=== PATIENT | female | born 1980 | race Caucasian/White ===

== ENCOUNTER 2022-09-11 16:34 | Day surgery (SDC) | payer BC, SELFPAY ==
[2022-09-11 16:44] VITALS: BP 131/85; PULSE 89; RESP 16; TEMP 36.4; O2SAT 99; BMI 26.3
--- NOTE | 2022-09-11 17:56 | CRLHL7_ITS ---
For Patients: As a result of the Century Cures Act, medical imaging exams and procedure reports are released immediately into your electronic medical record. You may view this report before your referring provider. If you have questions, please contact your health care provider. INDICATION: Abdominal pain. TECHNIQUE: CT abdomen and pelvis acquired with 100 cc Omnipaque 350 IV contrast. COMPARISON: None. FINDINGS: Lower chest: Scattered dependent atelectasis. Liver: Unremarkable. Normal in size and attenuation. No suspicious masses. Gallbladder and bile ducts: Unremarkable. No stones or inflammation. No biliary dilatation. Pancreas: Unremarkable. No mass or inflammation. Spleen: Unremarkable. Normal in size. No masses. Adrenal glands: Unremarkable. No nodules. Kidneys: Unremarkable. No suspicious masses, stones, or hydronephrosis. GI tract: Mild submucosal fatty infiltration of the colon which could be seen in remote/recurrent colitis. No bowel obstruction. Mildly enlarged/hyperemic appendix with subtle periappendiceal inflammatory stranding. Vasculature: Abdominal aorta is normal in caliber. Mesenteric arteries are patent. Lymph nodes: No lymphadenopathy. Peritoneum/Abdominal Wall: Unremarkable. No sign of mass or infiltration. No free air or significant free fluid. Pelvis: Unremarkable. Bones: Unremarkable for age. IMPRESSION: Mildly enlarged/hyperemic appendix with subtle periappendiceal inflammatory stranding. Finding suspicious for possible early acute appendicitis. Recommend correlation with physical examination for right lower quadrant pain and correlation with laboratory data. Submucosal fatty infiltration of the colon, likely related to remote/recurrent colitis. Please note that all CT scans at this facility use dose modulation, iterative reconstruction, and/or weight-based dosing when appropriate to reduce radiation dose to as low as reasonably achievable. Dictated by Guillaume Lockett MD @ 09/11/2022 7:01:25 PM (Electronically Signed)
--- NOTE | 2022-09-11 17:57 | ED.ABDPAIN ---
HPI - Abdominal Pain General Chief Complaint: Abdominal Pain Stated Complaint: Stomach pain lasting a month Time Seen by Provider: 09/11/22 16:44 History of Present Illness HPI narrative: This 42-year-old female comes in with abdominal pain she states that she had some pain with episodes of diarrhea about a month ago. She this resolved and she felt normal for a couple weeks. She reports that she typically has constipation and does not typically have diarrhea. She did not have any fever or dysuria. There was no vomiting. About a couple weeks ago she started to have recurrent diarrhea symptoms with some crampy abdominal pain. This abdominal pain became much more intense last night. She states that she was awake for more than 3 hours with pain and some episodes of diarrhea. Has not been constipated recently. She does not report any blood in the toilet. Currently she is minimal pain. Related Data Home Medications Medication Instructions Recorded Confirmed No Known Home Medications 09/11/22 09/11/22 Allergies Allergy/AdvReac Type Severity Reaction Status Date / Time No Known Drug Allergies Allergy Verified 09/11/22 16:48 Review of Systems Status of ROS Reports: 10 or more systems reviewed and unremarkable except as noted in History and below Narrative Constitutional: No fevers, no weight gain or loss. Eyes: No discharge. No vision changes. HENT: No congestion, no sore throat, no ear pain. Cardiovascular: No chest pain, no palpitations. Respiratory: No shortness of breath, no wheezes, no cough. Gastrointestinal: Abdominal pain with diarrhea episodes as described above. No vomiting. Genitourinary: No dysuria, no hematuria. Musculoskeletal: Normal range of motion. Skin: No rashes, no pruritis. Neurological: No dizziness, weakness, sensory change, speech change. Endo/Heme/Allergies: No bruising or bleeding. No polydipsia. Pysch: no suicidality, no anxiety, no insomnia. All other systems reviewed and are negative. PFSH PFS Social History Smoking Status: Never smoker Non-prescribed substance use: denies use Exam Narrative: Exam Narrative: Constitutional: Well-developed, well-nourished, no acute distress. HEENT: Normocephalic, atraumatic. Neck: Normal range of motion. Nontender. Supple. Heart: Regular. No murmurs. Normal rate. Intact distal pulses. Lungs: Clear to auscultation. No chest discomfort. No wheezes, rhonchi, or rales. Abdomen: Normal bowel sounds. Diffuse abdominal pain which is mild currently. No rebound tenderness. Genitalia: Deferred. Back: No midline tenderness. Normal range of motion. Extremities: Normal range of motion. No injury. Skin: Intact. No rash. Warm. No erythema or pallor. Neurologic: No altered sensation. No weakness. Alert and oriented. Psychiatric: No suicidality. No anxiety or depression. No insomnia. Nursing notes and vitals signs are reviewed. Const: Vital Signs, click to edit/add: Vital Signs - 24 hr 09/11/22 16:44 Temperature 97.5 F L Pulse Rate [Left P ulse Oximeter] 89 Respiratory Rate 16 Blood Pressure [Ri ght Upper Arm] 131/85 Pulse Oximetry 99 Oxygen Delivery Me thod Room Air Course Vital Signs Vital signs: Initial Vital Signs Temperature 97.5 F L 09/11/22 16:44 Temperature Source Temporal Artery Scan 09/11/22 16:44 Pulse Rate 89 09/11/22 16:44 Pulse Rhythm 09/11/22 16:44 Pulse Strength 3+ Normal 09/11/22 16:44 Respiratory Rate 16 09/11/22 16:44 Blood Pressure 131/85 09/11/22 16:44 Blood Pressure Mean 100 09/11/22 16:44 Blood Pressure Position Sitting 09/11/22 16:44 Pulse Oximetry 99 09/11/22 16:44 Oxygen Delivery Method 09/11/22 16:44 Vital Signs Temperature 97.5 F L 09/11/22 16:44 Pulse Rate 89 09/11/22 16:44 Respiratory Rate 16 09/11/22 16:44 Blood Pressure 131/85 09/11/22 16:44 Pulse Oximetry 99 09/11/22 16:44 Oxygen Delivery Method 09/11/22 16:44 Temperature 97.5 F L 09/11/22 16:44 Pulse Rate 89 09/11/22 16:44 Respiratory Rate 16 09/11/22 16:44 Blood Pressure 131/85 09/11/22 16:44 Pulse Oximetry 99 09/11/22 16:44 Oxygen Delivery Method 09/11/22 16:44 MDM - Abdominal Pain MDM Narrative Medical decision making narrative: This patient comes in with abdominal pain as described above. She does have rather distinct pain if pressing deep enough at McBurney's point. Is established and labs were drawn. Labs returned with reassuring findings. Her sed rate is pending at this time. CT imaging of the abdomen and pelvis does show some inflammatory changes and possibility of early acute appendicitis. I did speak with the surgeon on-call, Dr. Alvarez, who recommended admission hospital and re-evaluation in the morning. Clostridium difficile test is ordered results pending. Similarly COVID test is pending at this time. I spoke with the hospitalist financial economist, Dr. Damon, who will arrange for her admission. Lab Data Labs: Lab Results 09/11/22 09/11/22 Range/Units 18:06 18:06 WBC 6.00 (4.50-11.00) K/uL RBC 4.49 (4.00-5.20) m/uL Hgb 13.2 (12.0-16.0) gm/dL Hct 38.6 (33.0-51.0) % MCV 86 (80-100) fL MCH 29 (26-34) pg MCHC 34 (32-36) gm/dL RDW Coeff of Dylan 12.0 (11.5-15.5) % Plt Count 184 (140-440) K/uL Neut % (Auto) 52.6 (42.0-72.0) % Lymph % (Auto) 31.8 (20-44) % [facility] [place] [facility] % (Auto) 7.7 (0.0-11.0) % Eos % (Auto) 6.7 (0.0-7.0) % Baso % (Auto) 1.0 (0.0-3.0) % Neut # (Auto) 3.16 (1.7-7.0) K/uL Lymph # (Auto) 1.91 (0.90-2.90) K/uL [facility] [place] [facility] # (Auto) 0.50 (0.00-0.90) K/UL Eos # (Auto) 0.40 (0.00-0.50) K/uL Baso # (Auto) 0.06 (0.00-0.30) K/uL Abs Immat Gran (auto) 0.01 (0.00-0.30) K/uL Sodium 137 (135-149) mmol/L Potassium 4.2 (3.6-5.1) mmol/L Chloride 104 (96-114) mmol/L Carbon Dioxide 27 (20-32) mmol/L BUN 10 (5-24) mg/dL Creatinine 0.7 (0.5-1.5) mg/dL Estimated Creat Clear 99.73 Estimated GFR 109 ml/min Glucose 98 (60-115) mg/dL Calcium 9.4 (8.4-10.6) mg/dL Discharge Plan Discharge Clinical Impression: Abdominal pain Patient Disposition: Admitted As Inpatient Prescriptions: No Action No Known Home Medications Follow Up/Referrals: Provider,Not a Local [Primary Care Provider] -
[2022-09-11 18:13] LABS: Basophils Absolute Auto 0.06 K/uL (0.00-0.30); Eosinophils Percent Auto 6.7 % (0.0-7.0); Hematocrit 38.6 % (33.0-51.0); Hemoglobin* 13.2 gm/dL (12.0-16.0); Immature Granulocytes Abs Auto 0.01 K/uL (0.00-0.30); Lymphocytes Absolute Auto 1.91 K/uL (0.90-2.90); Lymphocytes Percent Auto 31.8 % (20-44); Mean Corpuscular HGB Conc 34 gm/dL (32-36); Mean Corpuscular Hemoglobin 29 pg (26-34); Mean Corpuscular Volume 86 fL (80-100); Monocytes Percent Auto 7.7 % (0.0-11.0); Neutrophils Absolute Auto 3.16 K/uL (1.7-7.0); Neutrophils Percent Auto 52.6 % (42.0-72.0); Platelet Count* 184 K/uL (140-440); Red Blood Count 4.49 m/uL (4.00-5.20)
[2022-09-11 18:25] LABS: Chloride* 104 mmol/L (96-114)
[2022-09-11 18:26] LABS: Potassium* 4.2 mmol/L (3.6-5.1); Sodium* 137 mmol/L (135-149)
[2022-09-11 18:28] LABS: Carbon Dioxide* 27 mmol/L (20-32); Creatinine* 0.7 mg/dL (0.5-1.5); Est. Creatinine Clearance* 99.73; Estimated Glomerular Filt Rate 109 ml/min
[2022-09-11 18:29] LABS: Blood Urea Nitrogen* 10 mg/dL (5-24); Calcium* 9.4 mg/dL (8.4-10.6); Glucose* 98 mg/dL (60-115)
[2022-09-11 18:43] LABS: Slide Review Reflex No
[2022-09-11 20:45] LABS: SARS PCR* Negative SARS-CoV-2 (Negative)
[2022-09-11 21:01] VITALS: BP 126/78
[2022-09-11 21:08] LABS: Erythrocyte SedimentationRate* 6 mm/hr (2-20)
--- NOTE | 2022-09-11 21:36 | PM.IMHP1 ---
Hospitalist- H&P: HPI History of Present Illness Date Seen: 09/11/22 Chief complaint: Stomach pain lasting a month Narrative: Cassy Morton is a 42 year old female presenting for evaluation of abdominal pain. The patient endorses crampy abdominal pain. Sometimes the pain is RLQ other times the pain is generalized. She has hx of intermittent diarrhea, denies melena, hematochezia. She denies chest pain, sob, endorses nausea/vomiting, denies fever. In the ED the patient had normal WBC. Notable workup included CT AP which showed Mildly enlarged/hyperemic appendix with subtle periappendiceal inflammatory stranding. Finding suspicious for possible early acute appendicitis. Recommend correlation with physical examination for right lower quadrant pain and correlation with laboratory data. Submucosal fatty infiltration of the colon, likely related to remote/recurrent colitis. Her case was discussed with rehabilitation services aide Surgery and the patient was admitted for further evaluation. Review of Systems Status of ROS: Reports: 10 or more systems reviewed and unremarkable except as noted in History and below PFSH PFSH Social History Smoking Status: Never smoker Non-prescribed substance use: denies use Meds Home Medications and Allergies Home Medications Medication Instructions Recorded Confirmed Type No Known Home Medications 09/11/22 09/11/22 History Allergies Allergy/AdvReac Type Severity Reaction Status Date / Time No Known Drug Allergies Allergy Verified 09/11/22 16:48 Exam Narrative: Exam Narrative: Gen: no acute distress HEENT: NCAT EOMI MMM Neck: Supple CV: RRR s1 s2 LCTAB Abd: RLQ tenderness no rebound MSK: Age appropriate muscle mass Skin: warm, dry no rash Const: Vital Signs, click to edit/add: Vital Signs - 24 hr 09/11/22 16:44 09/11/22 21:01 Temperature 97.5 F L Pulse Rate [Left P ulse Oximeter] 89 Respiratory Rate 16 Blood Pressure [Ri ght Upper Arm] 131/85 126/78 Pulse Oximetry 99 Oxygen Delivery Me thod Room Air Hospitalist - H&P: Result Labs Labs: Short CBC 09/11/22 Range/Units 18:06 WBC 6.00 (4.50-11.00) K/uL Hgb 13.2 (12.0-16.0) gm/dL Hct 38.6 (33.0-51.0) % Plt Count 184 (140-440) K/uL BMP 09/11/22 18:06 Sodium 137 Potassium 4.2 Chloride 104 Carbon Dioxide 27 BUN 10 Creatinine 0.7 Glucose 98 Calcium 9.4 Assessment and Plan Assessment and plan (1) Abdominal pain: Status: Acute Plan Assessment: Cassy Morton is a 42 year old female presenting for evaluation of abdominal pain. The patient endorses crampy abdominal pain. Sometimes the pain is RLQ other times the pain is generalized. She has hx of intermittent diarrhea, denies melena, hematochezia. In the ED the patient had normal WBC. Notable workup included CT AP which showed Mildly enlarged/hyperemic appendix with subtle periappendiceal inflammatory stranding. Finding suspicious for possible early acute appendicitis. Recommend correlation with physical examination for right lower quadrant pain and correlation with laboratory data. Submucosal fatty infiltration of the colon, likely related to remote/recurrent colitis. Her case was discussed with rehabilitation services aide Surgery and the patient was admitted for further evaluation. 1. Suspected appendicitis 2. Submucosal fatty infiltration of the colon, likely related to remote/recurrent colitis. Plan -admit to observation -npo -MIVF -antiemetics -pain control -zosyn -stool culture/enteric pathogen panel -Surgery consult in AM -consideration outpatient colonoscopy 6-8 weeks following discharge for evaluation of IBD Code-Full DVT ppx-SCD
[2022-09-11] MEDS: 0.9 % SODIUM CHLORIDE 1000 ml 1,000 ML 125 ML IV (21:56)
[2022-09-11 21:57] VITALS: RESP 16; TEMP 37; O2SAT 98
[2022-09-11] MEDS: HYDROmorphone 0.5 mg/0.5 ml inj IVP (21:58)
[2022-09-11 23:09] VITALS: BMI 26.3
[2022-09-11] MEDS: PIPERACILLIN/TAZOBACTAM 4.5 GM in 0.9 % SODIUM CHLORIDE Mini-bag 100 ML IVPB (23:20)
[2022-09-12] VITALS (19 sets, daily range): BP systolic 100–139; BP diastolic 53–95; PULSE 65–97; RESP 14–18; TEMP 36.2–37.4; O2SAT 95–100
[2022-09-12] MEDS: 0.9 % SODIUM CHLORIDE 1000 ml 1,000 ML 125 ML IV (04:46)
[2022-09-12] MEDS: PIPERACILLIN/TAZOBACTAM 4.5 GM in 0.9 % SODIUM CHLORIDE Mini-bag 100 ML IVPB (04:46)
[2022-09-12] MEDS: HYDROmorphone 0.5 mg/0.5 ml inj IVP (04:56)
[2022-09-12 07:18] LABS: Lactate* 1.5 mmol/L (0.5-1.9)
[2022-09-12 07:24] LABS: Basophils Absolute Auto 0.04 K/uL (0.00-0.30); Basophils Percent Auto 0.9 % (0.0-3.0); Eosinophils Absolute Auto 0.28 K/uL (0.00-0.50); Eosinophils Percent Auto 6.1 % (0.0-7.0); Hematocrit 38.8 % (33.0-51.0); Hemoglobin* 13.1 gm/dL (12.0-16.0); Immature Granulocytes Abs Auto 0.01 K/uL (0.00-0.30); Lymphocytes Absolute Auto 1.31 K/uL (0.90-2.90); Lymphocytes Percent Auto 28.7 % (20-44); Mean Corpuscular HGB Conc 34 gm/dL (32-36); Mean Corpuscular Hemoglobin 29 pg (26-34); Mean Corpuscular Volume 87 fL (80-100); Monocytes Percent Auto 7.9 % (0.0-11.0); Neutrophils Absolute Auto 2.57 K/uL (1.7-7.0); Neutrophils Percent Auto 56.2 % (42.0-72.0); Platelet Count* 158 K/uL (140-440); Red Blood Count 4.47 m/uL (4.00-5.20); White Blood Count* 4.57 K/uL (4.50-11.00)
[2022-09-12 07:32] LABS: Slide Review Reflex No
[2022-09-12 07:34] LABS: Chloride* 109 mmol/L (96-114); Potassium* 4.2 mmol/L (3.6-5.1); Sodium* 138 mmol/L (135-149)
[2022-09-12 07:37] LABS: Blood Urea Nitrogen* 9 mg/dL (5-24); Calcium* 8.7 mg/dL (8.4-10.6); Carbon Dioxide* 21 mmol/L (20-32); Creatinine* 0.7 mg/dL (0.5-1.5); Est. Creatinine Clearance* 99.73; Estimated Glomerular Filt Rate 109 ml/min; Glucose* 99 mg/dL (60-115)
[2022-09-12] MEDS: ONDANSETRON 2 MG/ML inj 4 MG IVP (07:52)
--- NOTE | 2022-09-12 08:44 | P.GSCN_ITS ---
History of Present Illness Consult details Date Seen: 09/12/22 Consult date: 09/12/22 Narrative: The patient is a 42-year-old female who presented to the emergency department last evening with abdominal pain. Her history is as follows: At the beginning of July she had 3 weeks of diarrhea this was unprovoked. She states that with that she had some crampy abdominal pain which is different from the pain she is having now. This went away on its own. She states that 1 week ago she developed abdominal pain. A week prior to that she again had diarrhea. She states that this discomfort which started again a week ago, was intermittent and crampy in her mid to upper abdomen. Two days prior to admission she had nausea as well as pain. One day prior to admission she had diarrhea and nausea. She has not had a bowel movement in 2 days. Yesterday the pain was worse and she went to see her chiropractor who push on her right abdomen. She had severe pain with this and she was told to go to be evaluated. She went to urgent care and they sent her to the emergency department. Since she has been admitted, she has been unable to have a bowel movement. She thought maybe she could have a bowel movement this morning but when she got up she had chills and pain as well as nausea. She states that her pain has not significantly changed since admission overnight. She has not had any blood in her stool. She has never had a colonoscopy. She states that she was told a long time ago that her appendix was thickened. Apparently appendectomy was discussed but decided against. That was not at this facility. She states that she has had GI issues in the past and was diagnosed with irritable bowel syndrome. For this she was told to take MiraLax. She states that she generally will have firm stools every 1-2 days and that diarrhea is unusual for her. Currently she states most of her pain is in her back on the right side. Review of Systems Status of ROS: Reports: 10 or more systems reviewed and unremarkable except as noted in History and below PFSH PFSH Surgical History (Updated 09/12/22 @ 09:17 by Eilzabeth Alvarez MD) S/P ureteral reimplantation Social History (Updated 09/12/22 @ 09:17 by Elizabeth Alvarez MD) Narrative: She does not smoke. She drinks occasional alcohol. She works as a senior systems administrator. She is . Highest level of school completed/degree received: high school graduate Smoking Status: Never smoker Second hand tobacco smoke exposure: No Non-prescribed substance use: denies use Meds Home Medications and Allergies Home Medications Medication Instructions Recorded Confirmed Type No Known Home Medications 09/11/22 09/11/22 History Allergies Allergy/AdvReac Type Severity Reaction Status Date / Time No Known Drug Allergies Allergy Verified 09/11/22 16:48 Exam Narrative: Exam Narrative: General appearance: Alert, cooperative, and in no distress Eyes: PERRLA, eye lids clear, and sclera white HENT Head: Normocephalic Ears: External ears normal Cardiovascular Heart: Regular rate Extremities: warm and well perfused Gastrointestinal Abdominal: Suprapubic scar noted. No other abdominal scars. Abdomen is soft. She is tender to deep palpation on the right lower abdomen. She does have pain on the right with palpation of the left lower quadrant. No rebound. Musculoskeletal: Extremities: Upper: Both upper extremities have normal joint range of motion and intact strength. Lower: Both lower extremities have normal joint range of motion and intact strength. Skin: Normal skin color, texture, and turgor. No rashes or lesions. Neurologic: No focal deficits Psychiatric: Alert, oriented, cooperative, normal affect. Const: Vital Signs, click to edit/add: Vital Signs - 24 hr 09/11/22 16:44 09/11/22 21:01 09/11/22 21:57 Temperature 97.5 F L 98.6 F Pulse Rate [Left P ulse Oximeter] 89 Pulse Rate [Right Radial] Respiratory Rate 16 16 Blood Pressure [Ri ght Arm] Blood Pressure [Ri ght Upper Arm] 131/85 126/78 Pulse Oximetry 99 98 Oxygen Delivery Me thod Room Air Room Air 09/12/22 03:10 09/12/22 07:00 09/12/22 07:00 Temperature 99.3 F 98.8 F Pulse Rate [Left P ulse Oximeter] Pulse Rate [Right Radial] 84 81 81 Respiratory Rate 16 16 16 Blood Pressure [Ri ght Arm] 127/86 110/68 Blood Pressure [Ri ght Upper Arm] Pulse Oximetry 98 98 Oxygen Delivery Me thod Room Air Room Air Results Labs Labs: Diabetes panel 09/11/22 09/12/22 Range/Units 18:06 06:49 Sodium 137 138 (135-149) mmol/L Potassium 4.2 4.2 (3.6-5.1) mmol/L Chloride 104 109 (96-114) mmol/L Carbon Dioxide 27 21 (20-32) mmol/L BUN 10 9 (5-24) mg/dL Creatinine 0.7 0.7 (0.5-1.5) mg/dL Glucose 98 99 (60-115) mg/dL Calcium 9.4 8.7 (8.4-10.6) mg/dL Calcium panel 09/11/22 09/12/22 Range/Units 18:06 06:49 Calcium 9.4 8.7 (8.4-10.6) mg/dL Pituitary panel 09/11/22 09/12/22 Range/Units 18:06 06:49 Sodium 137 138 (135-149) mmol/L Potassium 4.2 4.2 (3.6-5.1) mmol/L Chloride 104 109 (96-114) mmol/L Carbon Dioxide 27 21 (20-32) mmol/L BUN 10 9 (5-24) mg/dL Creatinine 0.7 0.7 (0.5-1.5) mg/dL Glucose 98 99 (60-115) mg/dL Calcium 9.4 8.7 (8.4-10.6) mg/dL Adrenal panel 09/11/22 09/12/22 Range/Units 18:06 06:49 Sodium 137 138 (135-149) mmol/L Potassium 4.2 4.2 (3.6-5.1) mmol/L Chloride 104 109 (96-114) mmol/L Carbon Dioxide 27 21 (20-32) mmol/L BUN 10 9 (5-24) mg/dL Creatinine 0.7 0.7 (0.5-1.5) mg/dL Glucose 98 99 (60-115) mg/dL Calcium 9.4 8.7 (8.4-10.6) mg/dL All other labs normal. Imaging Abdomen CT scan report/results: image reviewed Additional studies: Service Date: 09/11/[address]: Ordering Physician: Otis Lima M.D. Date of Service: 09/11/22 Procedure(s): CT abdomen pelvis w con Accession Number(s): [id number] cc: Otis Lima M.D.; Provider,Not a Local ~ For Patients:? As a result of the 21st Century Cures Act, medical imaging exams and procedure reports are released immediately into your electronic medical record.? You may view this report before your referring provider.? If you have questions, please contact your health care provider. INDICATION: Abdominal pain. TECHNIQUE: CT abdomen and pelvis acquired with 100 cc Omnipaque 350 IV contrast. COMPARISON: None. FINDINGS: Lower chest: Scattered dependent atelectasis. Liver: Unremarkable. Normal in size and attenuation. No suspicious masses. Gallbladder and bile ducts: Unremarkable. No stones or inflammation. No biliary dilatation. Pancreas: Unremarkable. No mass or inflammation. Spleen: Unremarkable. Normal in size. No masses. Adrenal glands: Unremarkable. No nodules. Kidneys: Unremarkable. No suspicious masses, stones, or hydronephrosis. GI tract: Mild submucosal fatty infiltration of the colon which could be seen in remote/recurrent colitis. No bowel obstruction. Mildly enlarged/hyperemic appendix with subtle periappendiceal inflammatory stranding. Vasculature: Abdominal aorta is normal in caliber. Mesenteric arteries are patent. Lymph nodes: No lymphadenopathy. Peritoneum/Abdominal Wall: Unremarkable. No sign of mass or infiltration. No free air or significant free fluid. Pelvis: Unremarkable. Bones: Unremarkable for age. IMPRESSION: Mildly enlarged/hyperemic appendix with subtle periappendiceal inflammatory stranding. Finding suspicious for possible early acute appendicitis. Recommend correlation with physical examination for right lower quadrant pain and correlation with laboratory data. Submucosal fatty infiltration of the colon, likely related to remote/recurrent colitis. Please note that all CT scans at this facility use dose modulation, iterative reconstruction, and/or weight-based dosing when appropriate to reduce radiation dose to as low as reasonably achievable. Dictated by Guillaume Lockett MD @ 09/11/2022 7:01:25 PM Assessment and Plan Assessment and plan (1) Appendicitis: Status: Acute (2) Abdominal pain: Status: Acute Plan The patient is a 42-year-old female with likely acute appendicitis. She and I discussed her symptoms and options at length. Certainly patients with appendicitis can have diarrhea, however usually this is limited to the days around the abdominal pain. Also, her labs are normal and her pain has been going on for a couple of days. We discussed C difficile colitis, however her white blood cell count is normal and she has not had a bowel movement in 2 days. We also discussed inflammatory bowel disease based on CT findings of submucosal fatty infiltration and her history of diarrhea, however there is some inflammation around the appendix and for this reason, appendicitis seems more likely. We discussed that some patients can get a phenomenon called subacute appendicitis. Her appendix appears to me to be posterior and even retrocecal and for this reason this is likely why her pain is more present in her back. We discussed treatment with antibiotics as well, however she has been on antibiotics for the past 12 hours and her symptoms have not improved. We discussed the risks of appendectomy which include bleeding, need for conversion to a larger incision, injury to other structures in the abdomen, particularly since she has had pelvic surgery in the past, and abscess formation. The patient understands that the risk of abscess is higher if the appendix is perforated. For that reason, we generally keep patient is in the hospital on IV antibiotics until vital signs and white blood cell count had normalized. We also discussed recovery including 2 weeks of lifting restrictions. After discussion, I think because of the periappendiceal inflammation and retrocecal position of the appendix which can explain her symptoms and presentation, I recommend appendectomy. She is agreeable with this plan and we will plan on doing this surgery this morning.
[2022-09-12 10:24] LABS: HCG Qualitative* Negative (Negative)
[2022-09-12] MEDS: LACTATED RINGERS 1000 ML 1,000 ML 100 ML IV (10:35)
[2022-09-12] MEDS: BUPIVACAINE 0.25% 30 ML INJECTION (12:10)
--- NOTE | 2022-09-12 12:30 | W.ANESCHARGE ---
Anesthesia Charges Start Date/Time Anesthesia Start Date: 09/12/22 Anesthesia Start Time: 10:35 Stop Date/Time Anesthesia Stop Date: 09/12/22 Anesthesia Stop Time: 12:32 Summary Emergency: Yes
--- NOTE | 2022-09-12 12:36 | PM.GSPRC ---
Operative Note Date of procedure: 09/12/22 Type of Procedure: Laparoscopic cholecystectomy Procedure Description: After discussing the risks and benefits of the procedure, the patient signed informed consent.? The operative site was marked and the patient was brought to the operating room and placed on the operating table in supine position.? Care was taken to pad the patient's pressure points.?? The patient was then intubated/given sedation by anesthesia.?? The operative site was then prepped and draped in the usual sterile fashion.? A time-out was then performed. Entrance to the abdomen was obtained via a 5 mm optical trocar in the left upper quadrant. The abdomen was insufflated and briefly surveyed for any signs of injury. There were none. A 12 mm port was placed inferior to the umbilicus as well as a 5 mm port in the left lower quadrant. Both were done under direct vision. The patient was then placed in Trendelenburg position with the right side up. The small bowel was gently moved out of the way and the cecum and terminal ileum were identified. There was a hard mass of inflammatory tissue presumably at the area of the appendix. This was densely adherent to the retroperitoneum and was difficult to grasp and pull into view. I began by incising the peritoneum using cautery with care to stay on the appendix itself to avoid injuring any retroperitoneal structures as the patient had previously had ureteral reimplantation surgery as a child. Once this was done I was able to see that the appendix curled around on itself and traveled posteriorly behind the cecum. With further blunt dissection, using the suction piercing machine operator, I was able to easily free up the appendix from its retrocecal location and identify the appendix along its length to its base at the cecum. This was soft and free of inflammation. The appendiceal tip and its associated mesentery remained densely adherent posteriorly. Again,to avoid injuring any retroperitoneal structures, I carefully dissected through the appendiceal mesenteric fat, clipping any small bleeding vessels as I went. Once the appendiceal tip was freed, I was able to grasp the appendix and lift it up. A mesenteric window was created between the base of the appendix and the mesoappendix. An Endo-RONN purple load stapler was then used to transect the appendix at its base. A vascular load stapler was then used to divide the mesoappendix. The staple lines were inspected for bleeding. There was none, however an additional clip was placed in the mesentery to ensure hemostasis the. The appendix was then removed from the abdomen using an Endo-Catch bag. The specimen was sent to pathology. The wound bed was again examined and hemostasis appeared excellent the ports were then removed and the abdomen desufflated. The 12 mm port site fascia was closed with 0 Vicryl. The skin was then closed with absorbable subcuticular suture. Sterile dressings were then applied. Instrument sponge and needle counts were correct at the end of the case. The patient was then woken and transported to the PACU in stable condition. ? The patient tolerated the procedure well. Findings: Inflammation of the tip of the appendix without perforation. Significant retroperitoneal adhesions. Anesthesia: GETA Surgeon: Elizabeth Alvarez MD Estimated blood loss (mL): 15 Condition: stable Disposition: PACU
[2022-09-12] MEDS: HYDROCODONE-ACETAMIN 5-325 MG 1 TAB PO (15:50)
--- NOTE | 2022-09-12 18:14 | PC.NURSE ---
Discharge Note: Pt tearful this morning. Rating pain 1-3/10 but very tearful. Appendectomy by Antonio this afternoon and pt again returned from PACU tearful but denying pain. 3 lap sites intact with scant amount of bloody drainage. BS hypoactive. Pt advanced to regular diet without difficulty. Voiding x2. Denies flatus at this time. VS WNL and LS COA. Rates post-op pain 1-2/10. 1 tab [place] given prior to discharge. Pt was discharged to home via wheelchair in the care of her at 1614. Pt and her verbalized understanding of discharge instructions and follow up appointment.
== END 2022-09-12 18:24 | disposition home or self-care (01) ==
LOC: ED 19:49 → SS 09-12 09:02 → MEDSURG 09-12 09:06
PROVIDERS: Hospitalist; Emergency Provider Emergency Medicine Emergency Medical Services; Visit Provider Surgery
PROC: 0DTJ4ZZ Resection of Appendix, Percutaneous Endoscopic Approach (ICD-10-PCS; CPT 44970; principal; 2022-09-12 10:15)
DX: K35.80 Unspecified acute appendicitis (principal); R10.84 Generalized abdominal pain
CPT/HCPCS: 44970; 00840; 36415; 74177; 80048; 83605; 84703; 85025; 85651; 87045; 87046; 87427; 87493; 87505; 87635; 99140; 99285; A9270; J0330; J1100; J1170; J1200; J1885; J2250; J2405; J2543; J2704; J3010; J3490; J7030; J7120; Q9967

== ENCOUNTER 2022-09-21 14:47 | Outpatient (CLI) | payer BC, SELFPAY ==
[2022-09-21 17:20] LABS: Chloride* 105 mmol/L (96-114); Potassium* 4.2 mmol/L (3.6-5.1); Sodium* 140 mmol/L (135-149)
[2022-09-21 17:23] LABS: Blood Urea Nitrogen* 9 mg/dL (5-24); Carbon Dioxide* 25 mmol/L (20-32); Creatinine* 0.6 mg/dL (0.5-1.5); Estimated Glomerular Filt Rate 113 ml/min; Glucose* 78 mg/dL (60-115)
[2022-09-21 17:24] LABS: Calcium* 9.6 mg/dL (8.4-10.6)
== END 2022-09-21 14:48 | disposition home or self-care (01) ==
LOC: NFLDREF 14:48
PROVIDERS: Visit Provider Surgery
DX: R10.9 Unspecified abdominal pain (principal); Z90.49 Acquired absence of other specified parts of digestive tract
CPT/HCPCS: 80048

== ENCOUNTER 2022-10-23 11:32 | Outpatient (CLI) | payer BC, SELFPAY | END 2022-10-23 11:33 | disposition home or self-care (01) | PROVIDERS: Visit Provider Internal Medicine | DX: R93.3 Abnormal findings on diagnostic imaging of other parts of digestive tract (principal) | CPT/HCPCS: 45378; 88305; J2250; J2405; J3010 ==